=== PATIENT | male | born 1980 | race Hispanic/Latino ===

== ENCOUNTER 2016-11-30 19:22 | Emergency (ER) | payer OTHER ==
[2016-11-30 19:28] VITALS: BP 151/86; PULSE 84; TEMP 99
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
[2016-11-30 20:49] LABS: ABG ALLEN TEST YES; ARTERIAL BLOOD GAS HCO3 26.8 mmol/L (21-28); ARTERIAL BLOOD GAS O2 CONTENT 19.7 ML/dL (15-23); ARTERIAL BLOOD GAS PH 7.51 (7.35-7.45); ARTERIAL BLOOD GAS PO2 72 mm/Hg (80-100); ARTERIAL BLOOD HGB O2 SAT 93.4 % (95.0-98.0); HHB 1.5 % (0.0-5.0); METHEMOGLOBIN 2.1 % (0.0-3.0)
[2016-11-30 21:09] VITALS: RESP 16
[2016-11-30 21:39] VITALS: O2SAT 99
--- NOTE | 2016-12-01 07:32 | CARD ---
APPROVED REPORT EKG Measurement Heart [id number] <Conclusion> Normal sinus rhythm Nonspecific intraventricular conduction delay Borderline ECG
== END 2016-11-30 21:53 | disposition home or self-care (01) ==
LOC: H.ER 19:22
DX: J70.5 Respiratory conditions due to smoke inhalation (principal); T59.811A Toxic effect of smoke, accidental (unintentional), initial encounter; Y99.0 Civilian activity done for income or pay

== ENCOUNTER 2017-09-15 19:11 | Emergency (ER) | payer OTHER ==
[2017-09-15 19:16] VITALS: BP 135/87; PULSE 76; RESP 14; TEMP 98.7; O2SAT 95
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
== END 2017-09-15 20:28 | disposition home or self-care (01) ==
LOC: H.ER 19:11
DX: S60.221A Contusion of right hand, initial encounter (principal); W22.8XXA Striking against or struck by other objects, initial encounter; Y99.0 Civilian activity done for income or pay